=== PATIENT | male | born 1970 | race Caucasian/White ===

== ENCOUNTER → 2023-12-24 | Outpatient (CLI) | payer OTHER, SELFPAY ==
--- NOTE | 2023-12-24 10:23 | RAD_ITS ---
STUDY: X-RAY - RIGHT HAND REASON FOR EXAM: Male, 53 years old. Arthritis. TECHNIQUE: 3 view(s) of the hand. COMPARISON: None. FINDINGS: Osteopenia. Diffuse osteoarthritic changes most marked in the radial carpal row of the rest and the first CMC joint. Diffuse soft tissue swelling. RAD/Hand Min 3 Views IMPRESSION: Osteopenia with osteoarthritic changes and diffuse soft tissue swelling. No other abnormality. Electronically Signed: Celso Mcgovern MD at 15:18 EDT ,
--- NOTE | 2023-12-24 10:23 | RAD_ITS ---
HISTORY: Arthritis. TECHNIQUE: XR Hand Min 3 Views. COMPARISON: None. FINDINGS: BONES : No acute fracture identified. Degenerative cysts of the second metacarpophalangeal joint. Marginal erosions of the third metacarpophalangeal as well as the second and third interphalangeal joints. JOINTS: Subluxation of the first and second metacarpophalangeal joints. Tyro-neck deformity of the third finger. SOFT TISSUES: Mild soft tissue swelling over the ulnar styloid. Periarticular soft tissue swelling of the first metacarpophalangeal, second metacarpophalangeal, first and fifth proximal interphalangeal, and third proximal and distal interphalangeal joints. RAD/Hand Min 3 Views IMPRESSION: Left hand arthritis with marginal erosions, marked periarticular soft tissue swelling, swan-neck deformity of the third finger, and subluxations of the first and second metacarpophalangeal joints. Leading diagnostic consideration is rheumatoid arthritis, although psoriatic arthritis or lupus could have a similar appearance. Electronically Signed: Farrah Gonzalez MD at 9:40 EDT ,
--- NOTE | 2023-12-24 10:30 | RAD_ITS ---
STUDY: X-RAY - PELVIS REASON FOR EXAM: Male, 53 years old. Arthritis. TECHNIQUE: One view of the pelvis was obtained. COMPARISON: None. FINDINGS: Normal bowel gas pattern. Phleboliths. Normal bilateral iliac wings, sacroiliac joints and visualized sacrum. Normal visualized bilateral superior and inferior pubic rami. Normal pubic symphysis. Normal ischial tuberosities. Mild arthrosis of both hips. RAD/Pelvis 1 or 2 Views IMPRESSION: Arthritis of both hips. No other abnormality. Electronically Signed: Celso Mcgovern MD at 10:28 EDT ,
[2023-12-24 12:57] LABS: Erythrocyte Sedimentation Rate 30 mm/hr (0-20)
[2023-12-24 12:58] LABS: Absolute Lymphocyte Count 1.99 X10^3/uL (0.83-4.51); Absolute Neutrophil Count 6.8 X10^3/uL (2.0-7.7); Basophil# 0.11 X10^3/uL; Basophil% 1.1 % (0-1); Eosinophil# 0.14 X10^3/uL; Eosinophils% 1.4 % (0-5); Hematocrit 44.9 % (40-54); Hemoglobin 14.2 g/dL (13.0-16.5); Lymphocyte # 1.99 X10^3/ul (0.83-4.51); Lymphocyte % 20.3 % (19-41); Mean Corp Hgb Conc 31.6 g/dL (32-36); Mean Corpuscular Hgb 27.7 pg (27.0-32.0); Mean Corpuscular Volume 87.5 fL (80-94); Mean Platelet Vol. 11.4 fl (6.2-12.0); Monocyte# 0.71 X10^3/uL; Monocyte% 7.3 % (0-10); NRBC Flagged by Analyzer 0 % (0-5); Neutrophil # 6.81 X10^3/uL (2.7-7.7); Neutrophil % 69.7 % (47-70); Platelet Count 313 K/mm3 (150-450); RBC Distribution Width SD 48.8 fl (35.1-43.9); Red Blood Count 5.13 M/mm3 (4.6-6.2); White Blood Count 9.8 K/mm3 (4.4-11.0)
[2023-12-24 13:19] LABS: ALB/GLOB Ratio 1.1 RATIO (0.9-2.4); AST(SGOT) 24 U/L (15-37); Alanine Aminotransfer ALT/SGPT 22 U/L (16-61); Albumin, Serum 3.9 g/dL (3.2-5.0); Alkaline Phosphatase 74 U/L (45-117); Anion Gap 4 (5-15); BUN 13 mg/dL (7-18); CRP 3.46 mg/L (0.0-3.0); Calcium,Total 9.3 mg/dL (8.5-10.1); Chloride 109 mmol/L (98-107); EST Glomerular Filtration Rate 83 mL/min (>60); Est Glom Filt Rate - Afr Amer 100 mL/min (>60); Globulin 3.6 g/dL (2.2-4.2); Glucose 93 mg/dL (74-106); Potassium 4.1 mmol/L (3.5-5.1); Protein, Total 7.5 g/dL (6.4-8.2); Sodium Level 139 mmol/L (136-145)
[2023-12-24 13:33] LABS: Hepatitis B Surface Antibody Non-Reactive; Hepatitis B Surface Antigen Non-Reactive (Nonreactive); Hepatitis C Antibody Non-Reactive (Nonreactive)
[2023-12-26 14:10] LABS: ANTINUCLEAR ANTIBODIES DIRECT Positive (Negative)
[2023-12-26 20:07] LABS: CCP IgG Antibodies > 250 units (0-19); QNTFERON TB Mitogen Value > 10.00 IU/mL (.); QNTFERON TB Nil Value 0.01 IU/mL (.); QNTFERON TB1+ Ag Value 0.04 IU/mL (.); QNTFERON TB2+ Ag Value 0.04 IU/mL (.); QNTIFERON TB Positive Criteria Negative (Negative)
== END | disposition home or self-care (01) ==
PROVIDERS: PCP Family Medicine; Referring Provider Internal Medicine Rheumatology; Visit Provider Internal Medicine Rheumatology
DX: M79.7 Fibromyalgia (principal); M05.79 Rheumatoid arthritis with rheumatoid factor of multiple sites without organ or systems involvement; L40.59 Other psoriatic arthropathy; M19.041 Primary osteoarthritis, right hand
CPT/HCPCS: 36415; 72170; 73130; 80053; 85025; 85652; 86038; 86140; 86200; 86431; 86480; 86706; 86803; 87340